=== PATIENT | female | born 1960 | race Two or more races ===

== ENCOUNTER → 2017-02-19 | Outpatient (CLI) | payer OTHER ==
--- NOTE | ~2017-02-19 | MY29 ---
[facility] RADIOLOGY TEXT RESULTS PATIENT: LALO MAYA LOCATION: [facility] : 60 UNIT #: [id number] AGE: [address]: Luís Kwok MD SEX: F ORDER DR: [id number] [facility] [address] [place], [place] [address] [id number] MR#: [id number] #: [id number] NAME: LALO MAYA : 1960 SEX: F STUDY DATE/TIME: 02/19/2017 16:50 UNIT: [facility] ROOM: STUDY DESCRIPTION: [facility] SCREENING W/ CAD BILAT Attending Physician: Luís Kwok M.D. Referring Physician: Luís Kwok M.D. Ordering Physician: Luís Kwok M.D. Primary Care Physician: Luís Kwok M.D. MEDICAL IMAGING REPORT This report is preliminary unless electronic signature is present EXAM Bilateral digital screening mammogram with CAD. DATE 02/19/2017 HISTORY No personal or family history of breast cancer or current complaints. COMPARISON Bilateral screening mammogram, 12/15/2015, 11/14/2014, 11/15/2013. FINDINGS CC and MLO views were obtained of each breast utilizing digital technique and reviewed with an FDA-approved CAD device. Heterogeneously dense fibroglandular tissue is present bilaterally which can limit sensitivity of mammography. No new or developing nodules are identified. There are scattered benign calcifications within each breast, but no new or suspicious cluster of microcalcifications are identified. There is no architectural distortion. No abnormal skin thickening or nipple retraction. IMPRESSION BIRADS 2. Benign findings. Routine bilateral screening mammogram is recommended in 1 year. Patients over the age of 40 are entered into a reminder system with target due date for the next mammogram. A result letter will also be sent to the patient. BIRADS: 2 Benign finding. [facility] A Service [facility] RADIOLOGY TEXT RESULTS PATIENT: LALO MAYA LOCATION: [facility] : 60 UNIT #: [id number] AGE: [address]: Luís Kwok MD SEX: F ORDER DR: Dictated by... Bambi Jensen M.D. THIS IS AN ELECTRONICALLY VERIFIED REPORT Bambi Jensen M.D. at 02/21/2017 1:52 PM ERIN/corinne TD: 02/20/2017 10:24 JOB #: [id number] MEDICAL IMAGING REPORT Page 1 of 1 COPY
== END | disposition home or self-care (01) ==
LOC: CWCC 16:30
DX: Z12.31 Encounter for screening mammogram for malignant neoplasm of breast (principal)
CPT/HCPCS: G0202